=== PATIENT | female | born 1990 | race Hispanic/Latino ===

== ENCOUNTER 2023-06-02 13:36 | Emergency (ER) | payer BC ==
[~2023-06-02] VITALS: Ht 157.5 cm; Wt 69.9 kg
[2023-06-02 13:39] VITALS: BP 110/71; PULSE 93; RESP 16
[2023-06-02] MEDS ORDERED: CYCL10TA16 PO (15:01)
[2023-06-02] MEDS ORDERED: IBUP-2070 PO (15:01)
[2023-06-02 15:16] LABS: APPEARANCE,URINE CLEAR (CLEAR); BILIRUBIN,URINE NEGATIVE (NEGATIVE); GLUCOSE, URINE (UA) NEGATIVE (NEGATIVE); KETONES,URINE NEGATIVE (NEGATIVE); LEUKOCYTE ESTERASE ,URINE NEGATIVE Leu/uL (NEGATIVE); NITRATE,URINE NEGATIVE (NEGATIVE); OCCULT BLOOD,URINE NEGATIVE (NEGATIVE); PH,URINE 6.5 (5.0-8.0); PROTEIN,URINE NEGATIVE (NEGATIVE); UROBILINOGEN,URINE 0.2 mg/dL (0.2-1.0)
[2023-06-02 15:19] LABS: HCG,QUALITATIVE URINE NEGATIVE (NEGATIVE)
[2023-06-02 15:20] LABS: COLOR,URINE YELLOW (YELLOW)
[2023-06-02 15:21] LABS: ADD UA MICROSCOPIC NO
[2023-06-02] MEDS ORDERED: CYCLOBENZAPRINE HCL 10 MG TABLET PO ONE (15:30)
[2023-06-02] MEDS ORDERED: KETOROLAC 60 MG VIAL (30MG/ML) IM ONE (15:30)
== END 2023-06-02 15:34 | disposition home or self-care (01) ==
LOC: EDH 13:36
DX: S39.012A Strain of muscle, fascia and tendon of lower back, initial encounter (principal); M51.25 Other intervertebral disc displacement, thoracolumbar region; M54.16 Radiculopathy, lumbar region; Z79.899 Other long term (current) drug therapy; Z98.890 Other specified postprocedural states; X58.XXXA Exposure to other specified factors, initial encounter; Y93.89 Activity, other specified; Y92.89 Other specified places as the place of occurrence of the external cause; Y99.8 Other external cause status
CPT/HCPCS: 99284; 81003; 81025; 96372; J1885